=== PATIENT | male | born 1990 | race Caucasian/White ===

== ENCOUNTER 2018-01-18 22:39 | Inpatient (IN) ==
[2018-01-18] MEDS ORDERED: Morphine Inj 4 MG/ML Vial IV.PUSH ONE (23:16)
[2018-01-18] MEDS ORDERED: Clindamycin 900 mg/NS Premix 900 MG/50 ML PIGGYBACK IV.SIG STA (23:17)
[2018-01-18] MEDS ORDERED: Acetaminophen 325 MG Tablet PO ONE (23:24)
--- NOTE | 2018-01-18 23:24 | ED ---
HPI General Chief complaint: Skin/Abscess/Foreign Body Stated complaint: abscess on buttock Time Seen by Provider: 01/18/18 23:05 Source: patient Mode of arrival: ambulatory Limitations: no limitations History of Present Illness HPI narrative: Patient is a 27-year-old male who comes in complaining of his buttocks. He says that has been there for the past 2-1/2 weeks. He says it has been getting larger and more painful. He has felt feverish. He has been taking Tylenol and IV help with the fever and pain. He last took it an hour and a half ago. He says he went to an urgent care and they told him he might need to have it drained by a surgeon. He says he feels like it is going into his testicular area and he has pain when he has a bowel movement. Severity is moderate. Related Data Home Medications Medication Instructions Recorded Confirmed acetaminophen [Tylenol Extra 1,000 mg PO Q6H PRN 01/18/18 01/18/18 Strength] ibuprofen 400 mg PO QID PRN 01/18/18 01/19/18 sulfamethoxazole-trimethoprim 1 tab PO Q12H 01/18/18 01/18/18 [Bactrim DS] Allergies Allergy/AdvReac Type Severity Reaction Status Date / Time No Known Allergies Allergy Unverified 01/18/18 23:16 Review of Systems ROS: all other systems reviewed are negative Constitutional Reports chills and Reports fever(s) ENT Denies dizziness Cardiovascular Denies chest pain and Denies dyspnea Respiratory Denies dyspnea Gastrointestinal Reports abdominal pain, Denies nausea and Denies vomiting Musculoskeletal Denies myalgias and Denies arthralgias Integumentary/Breasts Reports lesions Neurologic Denies focal weakness and Denies numbness PMFSH Social History Social History Substance History: No History of Abuse Second Hand Smoke Exposure: Yes Smoking Status: Current every day smoker Tobacco Type: Cigarettes How Often Do You Have a Drink Containing Alcohol: 2 to 4 times a month Recent Travel in [facility] within the Last 8 Weeks: No Recent Out of Country Travel within the Last 8 Weeks: No Immunization History Tetanus Immunization: <5 Years Exam Narrative Exam Narrative: GENERAL: Awake and alert, no acute distress. SKIN: Large area of erythema and induration to the right buttocks, extending into the anus as well as the perineum. HEAD: Atraumatic. Normocephalic. EYES: Pupils equal and round. No scleral icterus. ENT: Mucous membranes pink and moist. NECK: Trachea midline. No JVD. CARDIOVASCULAR: Regular rate and rhythm. No murmur appreciated. RESPIRATORY: No accessory muscle use. Clear to auscultation. Breath sounds equal bilaterally. GASTROINTESTINAL: Abdomen soft, non-tender, nondistended. MUSCULOSKELETAL: No obvious deformities. No clubbing. No cyanosis. No edema. NEUROLOGICAL: Awake and alert. No obvious cranial nerve deficits. Motor grossly within normal limits. Normal speech. PSYCHIATRIC: Appropriate mood and affect; insight and judgment normal. Course Initial Documented Vital Signs Temperature 99.7 F H 01/18/18 22:50 Pulse Rate 92 H 01/18/18 22:50 Respiratory Rate 18 01/18/18 22:50 Blood Pressure 122/76 01/18/18 22:50 Pulse Oximetry 99 01/18/18 22:50 Last Documented Vital Signs Temperature 98.1 F 01/19/18 01:07 Pulse Rate 87 01/19/18 01:07 Respiratory Rate 16 01/19/18 01:07 Blood Pressure 154/68 H 01/19/18 01:07 Pulse Oximetry 99 01/19/18 01:07 Sign Out Sign Out Data: Patient Sign Out occurred on 01/19/18 at 00:27. Patient's care was discussed, and care was transferred from Perri Horton MD to Angelica Beckwith MD. Sign Out Comment: Follow up lab work, imaging, disposition the patient. Last updated by Perri Horton MD at 01/18/18 23:46 Post-Handoff Eval: Accepted in transfer of care from Dr. Horton for follow-up of pending labs CT and patient disposition. Medical Decision Making MDM Narrative Medical decision making narrative: 27-year-old male not diabetic accepted in transfer of care from Dr. Horton for area of cellulitis and concern for non- pointing abscess to the left buttock and perirectal area; no eschar no crepitus no subcutaneous emphysema no rapidly worsening symptoms concerning for necrotizing fasciitis or Brady's gangrene CT consistent with 4.7 x 4 x 2.7 perirectal abscess; this is discussed with patient who is willing to have ongoing IV antibiotics but does not want to proceed with I&D in the emergency department. Patient is aware that ultimately the intervention of choice is I&D well discussed patient with medicine service for admission and possible colorectal consult in a.m. for definitive intervention. Patient has received IV morphine without pain relief Toradol ordered. Call placed to [facility] service. @ 2AM discussed with and accepted by [facility] service for IV antibiotics and as needed colorectal consult. Medical Screen Exam Complete: Yes Emergency Medical Condition: Yes Differential Diagnosis Differential Diagnosis: Abscess cellulitis fistulous tract; no findings for Brady's gangrene, necrotizing fasciitis Medical Records Medical records reviewed: Yes I reviewed the patient's medical records. none Lab Data Lab results reviewed: Yes I reviewed the patient's lab results. Lab results narrative: lactic acid 0.7, not elevated Result diagrams: 01/18/18 23:40 01/18/18 23:40 Lab Results 01/18/18 01/18/18 01/18/18 Range/Units 23:40 23:40 23:40 CBC w Diff Auto diff final WBC 12.8 H (4.0-11.0) th/mm3 RBC 4.48 L (4.50-5.90) mil/mm3 Hgb 13.8 (13.0-17.0) gm/dL Hct 39.8 (39.0-51.0) % MCV 88.9 (80.0-100.0) fL MCH 30.7 (27.0-34.0) pg MCHC 34.6 (32.0-36.0) % RDW 12.0 (11.6-17.2) % Plt Count 247 (150-450) th/mm3 MPV 9.2 (7.0-11.0) fL Neut % (Auto) 72.2 H (16.0-70.0) % Lymph % (Auto) 17.6 (9.0-44.0) % [place] % (Auto) 6.5 (0.0-8.0) % Eos % (Auto) 2.5 (0.0-4.0) % Baso % (Auto) 1.2 (0.0-2.0) % Neut # (Auto) 9.3 H (1.8-7.7) th/mm3 Lymph # (Auto) 2.2 (1.0-4.8) th/mm3 [place] # (Auto) 0.8 (0.0-0.9) th/mm3 Eos # (Auto) 0.3 (0.0-0.4) th/mm3 Baso # (Auto) 0.2 (0.0-0.2) th/mm3 WBC Differential . Differential Comment . PT 10.7 (9.8-11.6) sec INR 1.1 Ratio APTT 33.3 H (24.3-30.1) sec Sodium 140 (136-145) meq/L Potassium 3.5 (3.5-5.1) meq/L Chloride 104 (98-107) meq/L Carbon Dioxide 26.8 (21.0-32.0) meq/L Anion Gap 9 (5-15) meq/L BUN 17 (7-18) mg/dL Creatinine 1.40 H (0.60-1.30) mg/dL Estimated GFR 60 L (>89) mL/min Random Glucose 103 (74-106) mg/dL Lactic Acid (0.4-2.0) mmol/L Calcium 8.6 (8.5-10.1) mg/dL Total Bilirubin 0.2 (0.2-1.0) mg/dL AST 16 (15-37) U/L ALT 16 (12-78) U/L Alkaline Phosphatase 96 (45-117) U/L Total Protein 7.8 (6.4-8.2) g/dL Albumin 3.8 (3.4-5.0) g/dL 01/18/18 Range/Units 23:40 CBC w Diff WBC (4.0-11.0) th/mm3 RBC (4.50-5.90) mil/mm3 Hgb (13.0-17.0) gm/dL Hct (39.0-51.0) % MCV (80.0-100.0) fL MCH (27.0-34.0) pg MCHC (32.0-36.0) % RDW (11.6-17.2) % Plt Count (150-450) th/mm3 MPV (7.0-11.0) fL Neut % (Auto) (16.0-70.0) % Lymph % (Auto) (9.0-44.0) % [place] % (Auto) (0.0-8.0) % Eos % (Auto) (0.0-4.0) % Baso % (Auto) (0.0-2.0) % Neut # (Auto) (1.8-7.7) th/mm3 Lymph # (Auto) (1.0-4.8) th/mm3 [place] # (Auto) (0.0-0.9) th/mm3 Eos # (Auto) (0.0-0.4) th/mm3 Baso # (Auto) (0.0-0.2) th/mm3 WBC Differential Differential Comment PT (9.8-11.6) sec INR Ratio APTT (24.3-30.1) sec Sodium (136-145) meq/L Potassium (3.5-5.1) meq/L Chloride (98-107) meq/L Carbon Dioxide (21.0-32.0) meq/L Anion Gap (5-15) meq/L BUN (7-18) mg/dL Creatinine (0.60-1.30) mg/dL Estimated GFR (>89) mL/min Random Glucose (74-106) mg/dL Lactic Acid 0.7 (0.4-2.0) mmol/L Calcium (8.5-10.1) mg/dL Total Bilirubin (0.2-1.0) mg/dL AST (15-37) U/L ALT (12-78) U/L Alkaline Phosphatase (45-117) U/L Total Protein (6.4-8.2) g/dL Albumin (3.4-5.0) g/dL Imaging Data Radiologist's impression: Pelvis CT 01/19/18 00:23 CONCLUSION: 1. 4.1 x 2.7 x 4.1 cm left perirectal abscess. Discharge Plan Discharge Disposition Patient Disposition: 30 Still Patient Discharge Condition Condition: Stable Discharge Details Diagnosis: Perirectal abscess, Cellulitis, SIRS (systemic inflammatory response syndrome) Physicians Team ED Provider: Angelica Beckwith Primary Care Provider: Primary Care Caryl Coppola Attending Provider: Kelsy Casey Status ED Status: Admitted Observation Patient
[2018-01-18 23:57] LABS: Baso # (Auto) 0.2 th/mm3 (0.0-0.2); Baso % (Auto) 1.2 % (0.0-2.0); Eos # (Auto) 0.3 th/mm3 (0.0-0.4); Eos % (Auto) 2.5 % (0.0-4.0); Hematocrit 39.8 % (39.0-51.0); Hemoglobin 13.8 gm/dL (13.0-17.0); Lymph # (Auto) 2.2 th/mm3 (1.0-4.8); Lymph % (Auto) 17.6 % (9.0-44.0); Mean Corpuscular HGB Conc 34.6 % (32.0-36.0); Mean Corpuscular Hemoglobin 30.7 pg (27.0-34.0); Mean Corpuscular Volume 88.9 fL (80.0-100.0); Mean Platelet Volume 9.2 fL (7.0-11.0); Mono # (Auto) 0.8 th/mm3 (0.0-0.9); Mono % (Auto) 6.5 % (0.0-8.0); Neut # (Auto) 9.3 th/mm3 (1.8-7.7); Neut % (Auto) 72.2 % (16.0-70.0); Platelet Count 247 th/mm3 (150-450); Red Blood Count 4.48 mil/mm3 (4.50-5.90); White Blood Count 12.8 th/mm3 (4.0-11.0)
[2018-01-18] MEDS: Sod Chloride 0.9% Inj 1,000 ML IV.SIG SCH (23:57)
[2018-01-19 00:02] LABS: Chloride 104 meq/L (98-107); Potassium 3.5 meq/L (3.5-5.1); Sodium 140 meq/L (136-145)
[2018-01-19 00:05] LABS: Calcium 8.6 mg/dL (8.5-10.1)
[2018-01-19 00:06] LABS: Albumin 3.8 g/dL (3.4-5.0); Anion Gap 9 meq/L (5-15); Carbon Dioxide 26.8 meq/L (21.0-32.0); Glucose,Random 103 mg/dL (74-106)
[2018-01-19 00:08] LABS: Activated Partial Thrombo Time 33.3 sec (24.3-30.1); Blood Urea Nitrogen 17 mg/dL (7-18); INR 1.1 Ratio; Prothrombin Time 10.7 sec (9.8-11.6)
[2018-01-19 00:09] LABS: Alanine Aminotransferase 16 U/L (12-78); Aspartate Aminotransferase 16 U/L (15-37); Glomerular Filtration Rate 60 mL/min (>89)
[2018-01-19 00:11] LABS: Total Protein 7.8 g/dL (6.4-8.2)
[2018-01-19 00:12] LABS: Alkaline Phosphatase 96 U/L (45-117)
--- NOTE | 2018-01-19 00:51 | CT ---
EXAM DATE: 01/19/2018 12:23 AM EDT AGE/SEX: 27 years / Male INDICATIONS: Evaluate for abscess. CLINICAL DATA: This is the patient's initial encounter. Patient reports that signs and symptoms have been present for 4 - 6 days and indicates a pain score of 10/10. MEDICAL/SURGICAL HISTORY: None. None. RADIATION DOSE: 14.71 CTDI (mGy) COMPARISON: No prior exams available for comparison. TECHNIQUE: Multiple contiguous helical axial images were obtained through pelvis following bolus inf usion of 75 ml Omnipaque 350 (iohexol) nonionic water-soluble contrast as a single exam dose. Imag es were obtained using multiple row detector helical technique. . Using automated exposure control an d adjustment of the mA and/or kV according to patient size, radiation dose was kept as low as reasona johnathon achievable to obtain optimal diagnostic quality images. DICOM format image data is available dot ctronically for review and comparison. FINDINGS: AORTA: Visualized portions are nonaneurysmal. BOWEL/MESENTERY: Appendix is visualized and normal in appearance. Less portions of bowel are unremar kable without evidence for obstruction. There is no significant free fluid or drainable fluid collect ion in the pelvis. There is a 4.1 x 2.7 x 4.1 cm peripherally enhancing fluid collection in the left perirectal region with surrounding inflammatory change consistent with perirectal abscess. ABDOMINAL WALL: Intact. RETROPERITONEUM: No evidence of adenopathy in the retrocrural, para-aortic, or deep pelvic regions. BLADDER: Contours are smooth. REPRODUCTIVE: No abnormal masses or calcifications seen. BONY STRUCTURES: Unremarkable. CONCLUSION: 1. 4.1 x 2.7 x 4.1 cm left perirectal abscess. Electronically signed by: Krystian Medeiors MD 01/19/2018 12:49 AM EDT
[2018-01-19] MEDS ORDERED: Bisacodyl 10 MG Supp RECTAL PRN (02:22)
[2018-01-19] MEDS ORDERED: Acetaminophen 325 MG Tablet PO PRN ×2 (02:22→19:41)
[2018-01-19] MEDS: Sod Chloride 0.9% Inj 1,000 ML IV.CONT SCH ×3 (02:54→19:24)
[2018-01-19] MEDS: HYDROmorphone PF Inj 2 MG/ML Vial IV.PUSH PRN ×3 (02:55→17:17)
[2018-01-19] MEDS: Ciprofloxacin 400 MG/200 ML 400 MG/200 ML PIGGYBACK IV.SIG SCH ×2 (03:03→17:19)
[2018-01-19] MEDS: Sod Chloride 0.9% Inj 1,000 ML IV.SIG SCH ×2 (09:33→17:19)
--- NOTE | 2018-01-19 11:24 | P.HPIM ---
History of Present Illness Primary Care Physician: No Primary Care Physician History of Present Illness: Mr Glynn is a 27-year-old male. 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 He is a previous small rectal abscess which resolved on its own. Recently he has been having rectal pain. He was waiting to see if this resolved on its own. It did not. Fevers have started. Fevers and tachycardia are present in addition to leukocytosis and evidence of perirectal abscess on CT scan. Based on this the patient has a perirectal abscess with sepsis. Surgical intervention is anticipated. Surgery has been consulted. Antibiotics have also been initiated. Pain treatments are in place but pain medications will be adjusted due to lack of pain control. - Diagnosis (1) Sepsis (2) Perirectal abscess (3) Cellulitis Review of Systems Constitutional: Fever, no chills no night sweats, no fatigue, no weakness Eyes: No eye pain, no blurry vision, no loss of vision ENT: No sore throat, no ear pain, no rhinorrhea Cardiovascular: No chest pain, no tachycardia, no palpitations, no shortness of breath, no syncope Respiratory: No wheezing, no cough, no shortness of breath Gastrointestinal: No abdominal pain, no black tarry stools, no bright red blood per rectum, no vomiting, no diarrhea, rectal pain Musculoskeletal: No joint pain, no muscle cramps, no stiffness Integumentary: No rash, no ulcers, no drainage Neurologic: No sensory loss, no loss of motor function, no dizziness Psychiatric: No behavioral changes, no hallucinations, no suicidal ideations PMFSH - History History Provided By: Patient - Family History Family History: Family History (Last Updated 01/19/18 @ 11:21 by Josep Dawn MD) Other Osteoarthritis - Tobacco History Second Hand Smoke Exposure: Yes Tobacco Use In Past 30 Days: Yes Smoking Status: Current every day smoker Tobacco Type: Cigarettes - Alcohol History How Often Do You Have a Drink Containing Alcohol: Never - Substance Use History Substance History: No History of Abuse - Travel History Recent Travel in the [place] Within the Last 8 Weeks: No Recent Travel Out of the Country Within the Last 8 Weeks: No - Immunization History Tetanus Immunization: <5 Years Medications and Allergies Active Medications: Active Medications Acetaminophen (Tylenol) 650 mg PO Q4H PRN PRN Reason: Temp > 100.4 Last Admin: 01/19/18 09:27 Dose: 650 mg Bisacodyl (Dulcolax Supp) 10 mg RECTAL DAILY PRN PRN Reason: SEVERE CONSITIPATION Hydromorphone HCl (Dilaudid Pf Inj) 1 mg IV.PUSH Q4H PRN PRN Reason: pain > 4 Last Admin: 01/19/18 09:19 Dose: 1 mg Sodium Chloride (Ns Inj) 1,000 mls @ 0 mls/hr IV.SIG BOLUS [facility] Last Admin: 01/19/18 09:33 Dose: 150 mls/hr Ciprofloxacin/Dextrose (Cipro 400 Mg/200 Ml Inj) 400 mg in 200 mls @ 200 mls/ hr IV.SIG Q12H [facility] Last Infusion: 01/19/18 04:03 Dose: Infused Metronidazole/Sodium Chloride (Flagyl 500 Mg Inj) 100 mls @ 100 mls/hr IV.SIG Q8H [facility] Last Infusion: 01/19/18 07:00 Dose: Infused Sodium Chloride (Ns Inj) 1,000 mls @ 150 mls/hr IV.CONT .Q6H40M [facility] Last Admin: 01/19/18 09:34 Dose: 100 mls/hr Ondansetron HCl (Zofran Inj) 4 mg IV.PUSH Q6H PRN PRN Reason: NAUSEA OR VOMITING Last Admin: 01/19/18 03:03 Dose: 4 mg Sennosides (Senokot) 17.2 mg PO Q12H PRN PRN Reason: Moderate Constipation Allergies Allergy/AdvReac Type Severity Reaction Status Date / Time No Known Allergies Allergy Unverified 01/18/18 23:16 Home Medications Medication Instructions Recorded Confirmed Type acetaminophen [Tylenol Extra 1,000 mg PO Q6H PRN 01/18/18 01/18/18 History Strength] ibuprofen 400 mg PO QID PRN 01/18/18 01/19/18 History sulfamethoxazole-trimethoprim 1 tab PO Q12H 01/18/18 01/18/18 History [Bactrim DS] Exam Vital signs: Vital Signs 01/18/18 22:50 01/19/18 00:05 01/19/18 01:07 Temperature 99.7 F H 98.1 F Pulse Rate 92 H 87 Respiratory Rate 18 18 16 Blood Pressure 122/76 154/68 H Pulse Oximetry 99 99 01/19/18 03:09 01/19/18 04:43 01/19/18 08:00 Temperature 97.2 F L 101.1 F H Pulse Rate 74 84 97 H Respiratory Rate 16 18 Blood Pressure 138/72 116/70 142/87 H Pulse Oximetry 99 98 Intake & Output 01/18/18 01/19/18 01/19/18 18:59 06:59 18:59 Intake Total 1250 / 1250 350 / 350 Balance 1250 / 1250 350 / 350 Weight 77 kg Intake: IV 1250 / 1250 350 / 350 NS Inj 1,000 ML @ 150 mls/hr IV 250 / 250 .CONT .Q6H40M [facility] Rx#: [id number] Cipro 400 MG/200 ML Inj 400 mg 200 / 200 In 200 ml @ 200 mls/hr IV.SIG Q12H [facility] Rx#:[id number] Cleocin 900 mg/NS Premix 900 mg 50 / 50 In 50 ml @ 100 mls/hr IV.SIG [facility] Rx#:[id number] NS Inj 1,000 ML @ Wide Open IV. 1000 / 1000 SIG BOLUS [facility] Rx#:[id number] Flagyl 500 MG Inj 100 ML @ 100 100 / 100 mls/hr IV.SIG Q8H [facility] Rx#: [id number] Other: # Voids 1 Narrative: GENERAL: NAD, A&Ox3 HEAD: Normocephalic. NECK: Supple, trachea midline. No lymphadenopathy. EYES: No scleral icterus. No injection or drainage. CARDIOVASCULAR: Regular rate and rhythm without murmurs, gallops, or rubs. RESPIRATORY: Breath sounds equal bilaterally. No accessory muscle use. GASTROINTESTINAL: Abdomen soft, non-tender, nondistended. Significant rectal pain with any movement. MUSCULOSKELETAL: No cyanosis, or edema. SKIN: Warm and dry. NEURO: No focal neurological deficits. Results - Labs CBC & Chem 7: 01/18/18 23:40 01/18/18 23:40 Labs: Short CBC 01/18/18 Range/Units 23:40 WBC 12.8 H (4.0-11.0) th/mm3 Hgb 13.8 (13.0-17.0) gm/dL Hct 39.8 (39.0-51.0) % Plt Count 247 (150-450) th/mm3 BMP 01/18/18 23:40 Sodium 140 Potassium 3.5 Chloride 104 Carbon Dioxide 26.8 BUN 17 Creatinine 1.40 H Calcium 8.6 Liver Function 01/18/18 Range/Units 23:40 Total Bilirubin 0.2 (0.2-1.0) mg/dL AST 16 (15-37) U/L ALT 16 (12-78) U/L Alkaline Phosphatase 96 (45-117) U/L Albumin 3.8 (3.4-5.0) g/dL - Imaging Impressions Pelvis CT 01/19/18 00:23 CONCLUSION: 1. 4.1 x 2.7 x 4.1 cm left perirectal abscess. Caprini VTE Risk Assessment Caprini VTE Risk Assessment: No/Low Risk (score <= 1) Caprini Risk Assessment Model: Point Value = 1 Point Value = 2 Point Value = 3 Point Value = 5 Age 41-60 Minor surgery BMI > 25 kg/m2 Swollen legs Varicose veins or History of unexplained or recurrent spontaneous Oral contraceptives or hormone replacement Sepsis (< 1 month) Serious lung disease, including pneumonia (< 1 month) Abnormal pulmonary function Acute myocardial infarction Congestive heart failure (< 1 month) History of inflammatory bowel disease Medical patient at bed rest Age 61-74 Arthroscopic surgery Major open surgery (> 45 min) Laparoscopic surgery (> 45 min) Malignancy Confined to bed (> 72 hours) Immobilizing plaster cast Central venous access Age >= 75 History of VTE Family history of VTE Factor V Leiden Prothrombin [id number] Lupus anticoagulant Anticardiolipin antibodies Elevated serum homocysteine Heparin-induced thrombocytopenia Other congenital or acquired thrombophilia Stroke (< 1 month) Elective arthroplasty Hip, pelvis, or leg fracture Acute spinal cord injury (< 1 month) Prophylaxis Regimen: Total Risk Factor Score Risk Level Prophylaxis Regimen 0-1 Low Early ambulation 2 Moderate Order ONE of the following: *Sequential Compression Device (SCD) *Heparin 5000 units SQ BID 3-4 Higher Order ONE of the following medications: *Heparin 5000 units SQ TID *Enoxaparin/Lovenox 40 mg SQ daily (WT < 150 kg, CrCl > 30 mL/min) *Enoxaparin/Lovenox 30 mg SQ daily (WT < 150 kg, CrCl > 10-29 mL/min) *Enoxaparin/Lovenox 30 mg SQ BID (WT < 150 kg, CrCl > 30 mL/min) AND/OR *Sequential Compression Device (SCD) 5 or more Highest Order ONE of the following medications: *Heparin 5000 units SQ TID (Preferred with Epidurals) *Enoxaparin/Lovenox 40 mg SQ daily (WT < 150 kg, CrCl > 30 mL/min) *Enoxaparin/Lovenox 30 mg SQ daily (WT < 150 kg, CrCl > 10-29 mL/min) *Enoxaparin/Lovenox 30 mg SQ BID (WT < 150 kg, CrCl > 30 mL/min) AND *Sequential Compression Device (SCD) Assessment and Plan - Assessment (1) Sepsis Code(s): A41.9 - Sepsis, unspecified organism Status: Acute (2) Perirectal abscess Code(s): K61.1 - Rectal abscess Status: Acute (3) Cellulitis Code(s): L03.90 - Cellulitis, unspecified Status: Acute - Plan 27-year-old male admitted secondary to perirectal abscess and sepsis Sepsis IV hydration Monitor vital signs closely Follow fever pattern Treat infection as below Perirectal abscess Continue clindamycin, Flagyl, and ciprofloxacin Percocet for pain with as needed Dilaudid for breakthrough pain Surgeon consulted Anticipate possible need for surgical intervention DVT prophylaxis SCDs (3) Cellulitis Qualifiers: Site of cellulitis: buttock Qualified Code(s): L03.317 - Cellulitis of buttock
[2018-01-19] MEDS: oxyCODONE/Acetaminophen 10/325 Tablet PO PRN ×2 (13:38→20:37)
[2018-01-19] MEDS ORDERED: Chlorhexidine Gluconate 2% 1 Pack (2 Cloths) TOPICAL ONE (18:50)
[2018-01-19] MEDS ORDERED: Metoprolol Tartrate 25 MG Tablet PO ONE (18:50)
[2018-01-19] MEDS ORDERED: Phenylephrine/NS 1000 MCG/10ML Syringe IV.PUSH ONE (19:00)
[2018-01-19] MEDS ORDERED: Lidocaine PF 1% Inj 5 ML Syringe OTHER ONE (19:00)
[2018-01-19] MEDS ORDERED: Succinylcholine Inj 100 MG/5 ML Syringe IV.PUSH ONE (19:00)
[2018-01-19] MEDS ORDERED: Sodium Chlor 0.9% Inj 500 ML IV.SIG SCH (19:00)
[2018-01-19] MEDS ORDERED: Potassium Chlor 20 mEq Premix 20 MEQ/100 ML PIGGYBACK IV.SIG PRN (19:41)
[2018-01-19] MEDS ORDERED: Potassium Chlor 40 mEq Premix 40 MEQ/100 ML PIGGYBACK IV.SIG PRN (19:41)
[2018-01-19] MEDS ORDERED: Ketorolac Inj 30 MG/ML (IVP) Vial IV.PUSH PRN (19:41)
[2018-01-19] MEDS ORDERED: fentaNYL Citrate Inj 100 MCG/2 ML Ampul ONE (19:46)
[2018-01-19] MEDS ORDERED: KCL 20 mEq/D5W/NaCl 0.9% Inj 1,000 ML ONE (20:01)
[2018-01-20] MEDS: Ciprofloxacin 400 MG/200 ML 400 MG/200 ML PIGGYBACK IV.SIG SCH (03:37)
[2018-01-20] MEDS: KCL 20 mEq/D5W/NaCl 0.9% Inj 1,000 ML IV.CONT SCH (03:40)
[2018-01-20 06:57] LABS: Baso % (Auto) 0.4 % (0.0-2.0); Eos # (Auto) 0.2 th/mm3 (0.0-0.4); Eos % (Auto) 2.1 % (0.0-4.0); Hematocrit 33.4 % (39.0-51.0); Hemoglobin 11.4 gm/dL (13.0-17.0); Lymph # (Auto) 1.7 th/mm3 (1.0-4.8); Lymph % (Auto) 22.2 % (9.0-44.0); Mean Corpuscular HGB Conc 34.1 % (32.0-36.0); Mean Corpuscular Hemoglobin 31.1 pg (27.0-34.0); Mean Corpuscular Volume 91.2 fL (80.0-100.0); Mean Platelet Volume 8.7 fL (7.0-11.0); Mono # (Auto) 0.9 th/mm3 (0.0-0.9); Mono % (Auto) 11.6 % (0.0-8.0); Neut # (Auto) 4.8 th/mm3 (1.8-7.7); Neut % (Auto) 63.7 % (16.0-70.0); Platelet Count 176 th/mm3 (150-450); Red Blood Count 3.67 mil/mm3 (4.50-5.90); Red Cell Distribution Width 12.4 % (11.6-17.2); White Blood Count 7.5 th/mm3 (4.0-11.0)
[2018-01-20 07:12] LABS: Calcium 7.9 mg/dL (8.5-10.1); Carbon Dioxide 28.5 meq/L (21.0-32.0)
[2018-01-20] MEDS: Sod Chloride 0.9% Inj 1,000 ML IV.CONT SCH ×2 (08:37→08:41)
[2018-01-20] MEDS ORDERED: Pantoprazole Inj 40 MG Vial IV.PUSH SCH (09:00)
--- NOTE | 2018-01-20 10:36 | P.PN ---
Subjective Interval history: Follow-up visit for abscess, sepsis and cellulitis. Patient is status post I&D of rectal abscess 01/[address] Wiley. Reports that he continues to have swelling as well as a lot of pain. Patient states that current medications are not alleviating his pain and tenderness. He denies any fevers, chills, nausea, vomiting, diarrhea, cough, shortness of breath or chest pain. Return back to see patient around 1:40pm, has cleared patient to be DC home. Discussed with patient DC, had significant pain earlier this a.m. relieved with IV Morphine. Unsure if his pain will be controlled at home with just oral medications. Discussed trying to just use oral pain medications and pain is well controlled DC home today with oral pain medications and oral antibiotics. Discussed with RN. Scripts printed and signed. [employer]-Force checked. Return back to see patient again around 5:10 PM. Nurse reports a temperature earlier of 100, checked at bedside oral temperature 102. Physical Exam Vital signs: Vital Signs 01/19/18 13:06 01/19/18 17:03 01/19/18 19:38 Temperature 100.2 F H 101.7 F H 102.8 F H Pulse Rate 94 H 89 110 H Respiratory Rate 16 18 22 Blood Pressure 130/72 130/82 113/63 Pulse Oximetry 96 98 01/19/18 19:45 01/19/18 20:00 01/19/18 20:08 Temperature 100.5 F H Pulse Rate 99 H 81 97 H Respiratory Rate 16 18 Blood Pressure 110/56 L Pulse Oximetry 99 99 97 01/20/18 00:00 01/20/18 08:00 Temperature 98.7 F 98.2 F Pulse Rate 77 73 Respiratory Rate 18 15 Blood Pressure 114/56 L Pulse Oximetry 98 100 Intake & Output 01/19/18 01/20/18 01/20/18 18:59 06:59 18:59 Intake Total 1450 / 1450 1900 / 1900 2400 / 2400 Output Total 1310 / 1310 Balance 1450 / 1450 590 / 590 2400 / 2400 Weight 83 kg Intake: IV 1450 / 1450 1400 / 1400 2400 / 2400 NS Inj 1,000 ML @ 150 mls/hr IV 250 / 250 1000 / 1000 1000 / 1000 .CONT .Q6H40M [facility] Rx#: [id number] Cipro 400 MG/200 ML Inj 400 mg 200 / 200 200 / 200 In 200 ml @ 200 mls/hr IV.SIG Q12H [facility] Rx#:[id number] NS Inj 1,000 ML @ Wide Open IV. 1000 / 1000 1000 / 1000 SIG BOLUS [facility] Rx#:[id number] Ancef Inj 1,000 MG In NS Inj 100 / 100 100 / 100 100 ML @ 200 mls/hr IV.SIG Q6H [facility] Rx#:[id number] Flagyl 500 MG Inj 100 ML @ 200 200 / 200 100 / 100 100 / 100 mls/hr IV.SIG Q8H [facility] Rx#: [id number] Anesthesia Amount 500 / 500 Output: Urine 1300 / 1300 Estimated Blood Loss Other: Date of Last Bowel Movement 01/18/18 01/18/18 Narrative: GENERAL: NAD, A&Ox3 HEAD: Normocephalic. NECK: Supple, trachea midline. EYES: No scleral icterus. No injection or drainage. CARDIOVASCULAR: Regular rate and rhythm without murmurs, gallops, or rubs. RESPIRATORY: Breath sounds equal bilaterally. No accessory muscle use. GASTROINTESTINAL: Abdomen soft, non-tender, nondistended. Left buttock/rectal wound noted with packed dressing. ABD pad and gauze pad saturated with serosanguineous drainage. Surrounding erythema and tenderness. MUSCULOSKELETAL: No cyanosis, or edema. SKIN: Warm and dry. NEURO: No focal neurological deficits. Results - Labs CBC & Chem 7: 01/20/18 06:13 01/20/18 06:13 Laboratory Results - last 24 hr 01/20/18 01/20/18 06:13 06:13 WBC 7.5 RBC 3.67 L Hgb 11.4 L D Hct 33.4 L MCV 91.2 MCH 31.1 MCHC 34.1 RDW 12.4 Plt Count 176 MPV 8.7 Neut % (Auto) 63.7 Lymph % (Auto) 22.2 [place] % (Auto) 11.6 H Eos % (Auto) 2.1 Baso % (Auto) 0.4 Neut # (Auto) 4.8 Lymph # (Auto) 1.7 [place] # (Auto) 0.9 Eos # (Auto) 0.2 Baso # (Auto) 0.0 WBC Differential . Differential Comment Auto diff final Sodium 135 L Potassium 4.0 Chloride 101 Carbon Dioxide 28.5 Anion Gap 6 BUN 9 Creatinine 1.12 Estimated GFR 78 L Random Glucose 107 H Calcium 7.9 L Microbiology 01/18/18 23:40 Blood - Peripheral Aerobic Blood Culture - Preliminary No growth in 1 day 01/18/18 23:40 Blood - Peripheral Anaerobic Blood Culture - Preliminary No growth in 1 day Assessment and Plan - Assessment (1) Sepsis Code(s): A41.9 - Sepsis, unspecified organism Status: Acute (2) Perirectal abscess Code(s): K61.1 - Rectal abscess Status: Acute (3) Cellulitis Code(s): L03.90 - Cellulitis, unspecified Status: Acute - Plan 27-year-old male admitted secondary to perirectal abscess and sepsis Sepsis / perirectal abscess -Rectal surgeon consulted, greatly appreciate assistance. -Patient is status post I&D of abscess by 01/19 -IV antibiotics include Cipro and Flagyl. Scheduled Toradol every 6 hours -Pain control with p.o. Percocet, add IV morphine for breakthrough pain -Continue to follow blood cultures -White count back to normal -T-max today in the afternoon of 102, hold DC. Continue IV antibiotics. 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 (3) Cellulitis Qualifiers: Site of cellulitis: buttock Qualified Code(s): L03.317 - Cellulitis of buttock
[2018-01-20] MEDS: Morphine Sulfate Inj 2 MG/ML Vial IV.PUSH PRN (11:46)
--- NOTE | 2018-01-20 12:17 | P.PNCS ---
Subjective Colorectal Surgery Post Op Day #: 1 Interval history: afebrile, VSS UO good - voiding [place]on PO Objective Result Diagrams: 01/20/18 06:13 01/20/18 06:13 Objective Remarks: PE alert Abd - soft Rectal - clean wound, less cellulitis Assessment and Plan - Plan Imp: stable post-op OOB wound care, packing OK to DC home when family can clean wound RTO 1 - 2 weeks
--- NOTE | 2018-01-20 12:36 | MP ---
cc: Gerard Wiley MD DATE OF OPERATION: 01/19/2018 PREOPERATIVE DIAGNOSIS: Ischiorectal abscess PROCEDURES: Exam under anesthesia with proctoscopy and incision and drainage of large ischiorectal abscess. POSTOPERATIVE DIAGNOSIS: Ischiorectal abscess SURGEON: Gerard Wiley MD DESCRIPTION OF PROCEDURE: The patient was placed in the supine position. After adequate general anesthesia, he was turned and placed in the prone jackknife position. His buttocks taped apart, prepped with Betadine solution and draped in the usual sterile fashion. Initially rectal exam was performed and the rectal vault appeared normal. The mucosa appeared unremarkable. There were no signs of any internal openings or purulent fluid. Hemorrhoid tissues appeared pretty benign. There was significant induration and cellulitis of the left ischiorectal space extending all the way up anteriorly along the perineal body and towards the base of the scrotum. A radial incision was made anteriorly, entering a large cavity full of foul smelling purulent fluid. The cavity was fully explored and opened along the length of its extent. It did appear to be outside of the anal verge. Bimanual palpation failed to reveal any internal opening or connection to the anal canal. Cavity was irrigated copiously. Some necrotic material debrided from the base of the cavity. It did appear to extend along the perineal body and this plane was opened digitally although no additional purulent fluid was obtained. Cavity was irrigated copiously with normal saline. Adequate hemostasis achieved. Cavity was packed loosely with a large Kerlix dressing a big fluff dressing placed externally. The patient tolerated the procedure quite well and was brought to the recovery room in stable condition. Sponge and needle counts were correct at the end of the procedure. Gerard Wiley MD [facility]/ld , 12:23 PM , 12:28 PM
--- NOTE | 2018-01-20 12:40 | MB ---
cc: Gerard Wiley MD DATE: 01/19/2018 REASON FOR CONSULTATION: Perirectal infection, abscess. HISTORY OF PRESENT ILLNESS: Mr. Glynn is a 27-year-old male who came to the emergency room today complaining of about 2 weeks of gradually worsening pain around the rectum. Says he was treating it at home, hoping it would get better, but it has gotten more swollen and tender. He has felt like a low grade fever, but has had no chills or rigors. The patient has been taking Tylenol with some relief. The patient continued to have good bowel movements without bleeding. Denies any discharge. No diarrhea or melena. The patient was seen in the emergency room and found to have a rather large cellulitic area around the rectum, consistent with an abscess and was admitted for more definitive surgical drainage. Please see the admitting history and physical and consultations for complete past medical and surgical history. PHYSICAL EXAMINATION: A very pleasant, muscular male in some discomfort. Abdomen was very soft and flat, muscular, not really distended. Normal bowel sounds. No rebound, guarding, or masses. Anal inspection reveals fairly significant cellulitis and induration along the left ischiorectal space. Very tender to the touch, not really fluctuant. Benign hemorrhoids. No obvious fissures or fistula. Very little hemorrhoidal swelling. LABORATORY DATA: Laboratory studies were reviewed. IMPRESSION: Significant cellulitis and inflammation of the ischiorectal space. PLAN: Discussed at length with the patient. The patient was recommended to have exam under anesthesia with proctoscopy and drainage of the abscess, possible fistulotomy if indeed an internal opening was identified. Risks, benefits, and alternatives were discussed including the possibility of a postop fistula, were all reviewed at length with the patient and he accepts the proposed treatment. The patient will be kept n.p.o. and taken down to the operating room as soon as the OR is available. Gerard Wiley MD [facility]/ , 12:20 PM , 12:26 PM
[2018-01-21 07:51] LABS: Baso % (Auto) 0.8 % (0.0-2.0); Eos # (Auto) 0.2 th/mm3 (0.0-0.4); Eos % (Auto) 3.7 % (0.0-4.0); Hemoglobin 12.9 gm/dL (13.0-17.0); Lymph # (Auto) 1.8 th/mm3 (1.0-4.8); Lymph % (Auto) 31.5 % (9.0-44.0); Mean Corpuscular Hemoglobin 30.9 pg (27.0-34.0); Mean Corpuscular Volume 90.8 fL (80.0-100.0); Mean Platelet Volume 8.4 fL (7.0-11.0); Mono # (Auto) 0.8 th/mm3 (0.0-0.9); Mono % (Auto) 13.3 % (0.0-8.0); Neut # (Auto) 2.9 th/mm3 (1.8-7.7); Neut % (Auto) 50.7 % (16.0-70.0); Platelet Count 215 th/mm3 (150-450); Red Blood Count 4.18 mil/mm3 (4.50-5.90); Red Cell Distribution Width 12.6 % (11.6-17.2); White Blood Count 5.8 th/mm3 (4.0-11.0)
[2018-01-21] MEDS ORDERED: Ciprofloxacin 400 MG/200 ML 400 MG/200 ML PIGGYBACK IV.SIG SCH (08:00)
[2018-01-21 08:09] LABS: Calcium 8.3 mg/dL (8.5-10.1); Carbon Dioxide 28.1 meq/L (21.0-32.0)
--- NOTE | 2018-01-21 10:51 | P.PN ---
Subjective Interval history: Follow-up visit for colorectal abscess. Spoke with nurse reports temperature max on 8 PM was 102.5. Patient reports that Dr. Wiley stopped by this morning and changed dressing himself. Voices frustration over dressing not being changed yesterday along with delay in medications. Denies any nausea, vomiting , diarrhea, cough or shortness of breath. Patient reports some constipation, voiding without dysuria. He also reports that wound pain is much improved. Nurse reports patient pulled out IV overnight, somewhat frustrated and states that he has 3 children at home waiting for him. Physical Exam Vital signs: Vital Signs 01/20/18 12:00 01/20/18 16:00 01/20/18 19:41 Temperature 98.2 F 100.2 F H 102.5 F H Pulse Rate 61 96 H 104 H Respiratory Rate 16 17 18 Blood Pressure 105/53 L 126/90 129/74 Pulse Oximetry 91 L 90 L 91 L 01/21/18 00:00 01/21/18 04:00 01/21/18 08:00 Temperature 98.4 F 98.3 F 98.3 F Pulse Rate 85 83 70 Respiratory Rate 18 17 17 Blood Pressure 111/62 120/69 124/70 Pulse Oximetry 94 L 97 98 Intake & Output 01/20/18 01/21/18 01/21/18 18:59 06:59 18:59 Intake Total 4075 / 4075 1999 Output Total 600 / 600 Balance 3475 / 3475 1999 Weight 79.3 kg Intake: IV 3600 / 3600 NS Inj 1,000 ML @ 150 mls/hr IV 1999 .CONT .Q6H40M [facility] Rx#: [id number] Cipro 400 MG/200 ML Inj 400 mg 200 / 200 In 200 ml @ 200 mls/hr IV.SIG Q12H [facility] Rx#:[id number] NS Inj 1,000 ML @ Wide Open IV. 1000 / 1000 SIG BOLUS [facility] Rx#:[id number] Ancef Inj 1,000 MG In NS Inj 200 / 200 100 ML @ 200 mls/hr IV.SIG Q6H [facility] Rx#:[id number] Flagyl 500 MG Inj 100 ML @ 200 200 / 200 mls/hr IV.SIG Q8H [facility] Rx#: [id number] Oral 475 / 475 1999 Output: Urine 600 / 600 Other: # Voids 10 # Bowel Movements 0 Narrative: GENERAL: NAD, A&Ox3 HEAD: Normocephalic. NECK: Supple, trachea midline. EYES: No scleral icterus. No injection or drainage. CARDIOVASCULAR: Regular rate and rhythm without murmurs, gallops, or rubs. RESPIRATORY: Breath sounds equal bilaterally. No accessory muscle use. GASTROINTESTINAL: Abdomen soft, non-tender, nondistended. Left buttock/rectal dressing dry and intact. MUSCULOSKELETAL: No cyanosis, or edema. SKIN: Warm and dry. NEURO: No focal neurological deficits. Results - Labs CBC & Chem 7: 01/21/18 06:10 01/21/18 06:10 Laboratory Results - last 24 hr 01/21/18 01/21/18 06:10 06:10 WBC 5.8 RBC 4.18 L Hgb 12.9 L Hct 38.0 L MCV 90.8 MCH 30.9 MCHC 34.0 RDW 12.6 Plt Count 215 MPV 8.4 Neut % (Auto) 50.7 Lymph % (Auto) 31.5 [place] % (Auto) 13.3 H Eos % (Auto) 3.7 Baso % (Auto) 0.8 Neut # (Auto) 2.9 Lymph # (Auto) 1.8 [place] # (Auto) 0.8 Eos # (Auto) 0.2 Baso # (Auto) 0.0 WBC Differential . Differential Comment Auto diff final Sodium 140 Potassium 4.0 Chloride 106 Carbon Dioxide 28.1 Anion Gap 6 BUN 8 Creatinine 1.10 Estimated GFR 80 L Random Glucose 92 Calcium 8.3 L Microbiology 01/18/18 23:50 Blood - Peripheral Aerobic Blood Culture - Preliminary No growth in 1 day 01/18/18 23:50 Blood - Peripheral Anaerobic Blood Culture - Preliminary No growth in 1 day 01/18/18 23:40 Blood - Peripheral Aerobic Blood Culture - Preliminary No growth in 2 days 01/18/18 23:40 Blood - Peripheral Anaerobic Blood Culture - Preliminary No growth in 2 days Assessment and Plan - Assessment (1) Sepsis Code(s): A41.9 - Sepsis, unspecified organism Status: Acute (2) Perirectal abscess Code(s): K61.1 - Rectal abscess Status: Acute (3) Cellulitis Code(s): L03.90 - Cellulitis, unspecified Status: Acute - Plan 27-year-old male admitted secondary to perirectal abscess and sepsis Sepsis 05/22 perirectal abscess -Rectal surgeon consulted, greatly appreciate assistance. -Patient is status post I&D of abscess by 01/19 -IV antibiotics include Cipro and Flagyl. Scheduled Toradol every 6 hours -Pain control with p.o. Percocet, add IV morphine for breakthrough pain -Continue to follow blood cultures -White count back to normal -T-max overnight 102.5, continue IV antibiotics. DVT prophylaxis SCDs Discussed Condition With: Patient and RN. Discharge Planning: Continue antibiotics, discharge once afebrile for 24 hours. (3) Cellulitis Qualifiers: Site of cellulitis: buttock Qualified Code(s): L03.317 - Cellulitis of buttock
[2018-01-21] MEDS: Senna/Docusate Sodium 8.6/50 MG Tablet PO SCH ×2 (11:21→20:27)
[2018-01-21] MEDS: Morphine Sulfate Inj 2 MG/ML Vial IV.PUSH PRN (17:02)
[2018-01-21] MEDS: Sod Chloride 0.9% Inj 1,000 ML IV.CONT SCH (19:33)
[2018-01-21] MEDS: KCL 20 mEq/D5W/NaCl 0.9% Inj 1,000 ML IV.CONT SCH (19:34)
[2018-01-21] MEDS: metroNIDAZOLE 500 MG Tablet PO SCH ×2 (20:24→21:51)
[2018-01-21] MEDS: Ciprofloxacin 500 MG Tablet PO SCH (20:24)
[2018-01-21 21:11] VITALS: O2SAT 97
--- NOTE | 2018-01-21 22:02 | P.PNCS ---
Subjective Colorectal Surgery Post Op Day #: 2 Interval history: afebrile, VSS UO good feels better Objective Result Diagrams: 01/21/18 06:10 01/21/18 06:10 Objective Remarks: PE alert Abd - soft Rectal - clean wound, less cellulitis, dressing not changed Assessment and Plan - Plan Imp: No more fever OOB wound care, packing OK to DC home when family can clean wound RTO 1 - 2 weeks
[2018-01-21 22:43] VITALS: RESP 18
[2018-01-22 00:09] VITALS: BP 111/67; PULSE 55; TEMP 97.7
[2018-01-22] MEDS: metroNIDAZOLE 500 MG Tablet PO SCH (05:04)
--- NOTE | 2018-01-22 07:46 | P.DS ---
Date of admission: 01/19/18 11:24 Primary care physician: No Primary Care Physician Attending physician on discharge: Franky Mojica Anticipated date of discharge: 01/22/18 Brief History from admission: Mr Glynn is a 27-year-old male. 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 He is a previous small rectal abscess which resolved on its own. Recently he has been having rectal pain. He was waiting to see if this resolved on its own. It did not. Fevers have started. Fevers and tachycardia are present in addition to leukocytosis and evidence of perirectal abscess on CT scan. Based on this the patient has a perirectal abscess with sepsis. Surgical intervention is anticipated. Surgery has been consulted. Antibiotics have also been initiated. Pain treatments are in place but pain medications will be adjusted due to lack of pain control. DS: Diagnosis - Discharge Diagnosis (1) Sepsis Status: Acute (2) Perirectal abscess Status: Acute (3) Cellulitis Status: Acute DS: Medications - Discharge Medications Prescriptions: ciprofloxacin HCl [Cipro] 500 mg PO Q12H #20 tab metronidazole [Flagyl] 500 mg PO TID #30 tab oxycodone-acetaminophen 2 tab PO Q6H PRN #24 tab PRN Reason: Pain Scale 6 To 10 DS: Summary Hospital Course: 27-year-old male with relatively no past medical history who presented to the emergency department on 01/18 with complaints of rectal and fevers. She underwent CT scan of the pelvis which revealed left perirectal abscess. He was started on IV Flagyl and Cipro and rectal surgery consult was placed. Blood cultures drawn and were negative today. Patient underwent I&D of abscess by Dr. Wiley on 01/19. Wound dressings were performed by Dr. Wiley with ongoing recommendations. Pain control was established with oral pain medication and breakthrough pain medication. Patient had a fever on 01/20 of 102.5. His discharge was held for ongoing monitoring. He was seen and examined this morning and is ready to go home. Has been afebrile overnight and has not required any IV pain medication. Patient denies any nausea, vomiting, fevers, chills, cough or shortness of breath. Significant other will be taught dressing changes and patient will be provided with oral antibiotics. Patient understands that he will need to follow-up with Dr. Wiley as outpatient. - Time Spent with Patient Total time spent providing and/or coordinating discharge services: Less than 30 minutes Exam Vital signs: Vital Signs 01/21/18 08:00 01/21/18 12:00 01/21/18 16:00 Temperature 98.3 F 98.4 F 98.3 F Pulse Rate 70 65 61 Respiratory Rate 17 18 17 Blood Pressure 124/70 125/71 115/64 Pulse Oximetry 98 98 95 01/21/18 20:00 01/22/18 00:00 Temperature 98.1 F 97.7 F Pulse Rate 61 55 L Respiratory Rate 18 18 Blood Pressure 122/71 111/67 Pulse Oximetry 97 97 Intake & Output 01/21/18 01/22/18 01/22/18 18:59 06:59 18:59 Intake Total 950 / 950 900 / 900 Balance 950 / 950 900 / 900 Weight 77.9 kg Intake: IV 300 / 300 100 / 100 Cipro 400 MG/200 ML Inj 400 mg 200 / 200 In 200 ml @ 200 mls/hr IV.SIG Q12H [facility] Rx#:[id number] Flagyl 500 MG Inj 100 ML @ 100 100 / 100 100 / 100 mls/hr IV.SIG Q8H [facility] Rx#: [id number] Oral 650 / 650 800 / 800 Other: # Voids 10 4 Date of Last Bowel Movement 01/21/18 # Bowel Movements 1 Narrative: GENERAL: NAD, A&Ox3 HEAD: Normocephalic. NECK: Supple, trachea midline. EYES: No scleral icterus. No injection or drainage. CARDIOVASCULAR: Regular rate and rhythm without murmurs, gallops, or rubs. RESPIRATORY: Breath sounds equal bilaterally. No accessory muscle use. GASTROINTESTINAL: Abdomen soft, non-tender, nondistended. Left buttock/rectal dressing dry and intact. MUSCULOSKELETAL: No cyanosis, or edema. SKIN: Warm and dry. NEURO: No focal neurological deficits. Results Procedures completed during hospitalization: I&D rectal abscess 01/19 Labs on day of discharge: Labs from last 24 hours 01/21/18 01/21/18 06:10 06:10 WBC 5.8 RBC 4.18 L Hgb 12.9 L Hct 38.0 L MCV 90.8 MCH 30.9 MCHC 34.0 RDW 12.6 Plt Count 215 MPV 8.4 Neut % (Auto) 50.7 Lymph % (Auto) 31.5 [place] % (Auto) 13.3 H Eos % (Auto) 3.7 Baso % (Auto) 0.8 Neut # (Auto) 2.9 Lymph # (Auto) 1.8 [place] # (Auto) 0.8 Eos # (Auto) 0.2 Baso # (Auto) 0.0 WBC Differential . Differential Comment Auto diff final Sodium 140 Potassium 4.0 Chloride 106 Carbon Dioxide 28.1 Anion Gap 6 BUN 8 Creatinine 1.10 Estimated GFR 80 L Random Glucose 92 Calcium 8.3 L Preliminary micro results at discharge 01/18/18 23:50 Aerobic Blood Culture - Preliminary Blood - Peripheral No growth in 2 days Anaerobic Blood Culture - Preliminary No growth in 2 days 01/18/18 23:40 Aerobic Blood Culture - Preliminary Blood - Peripheral No growth in 3 days Anaerobic Blood Culture - Preliminary No growth in 3 days - Impressions ITS Impressions Pelvis CT 01/19/18 00:23 CONCLUSION: 1. 4.1 x 2.7 x 4.1 cm left perirectal abscess. Discharge Plan - Discharge Disposition Patient Disposition: Discharge Home - Discharge Condition Condition: Stable - Discharge Order Discharge Orders: Discharge Order (Routine); Ordered 01/22/18 Ordered By: Tanika Govea - Discharge Details Anticipated Discharge Date: 01/22/18 - Physicians Team Primary Care Provider: Primary Care Caryl Coppola Attending Provider: Franky Mojica Other Providers: Gerard Wiley MD
[2018-01-22] MEDS: Ciprofloxacin 500 MG Tablet PO SCH (09:25)
[2018-01-22] MEDS: Senna/Docusate Sodium 8.6/50 MG Tablet PO SCH (09:25)
== END 2018-01-22 09:41 | disposition home or self-care (01) ==
LOC: PHEDA 22:39 → PHED 22:39 → PHEDA 01-19 04:18 → PH3 01-19 04:22 → N07 01-19 16:58
PROVIDERS: ADMIT Hospitalist; ATTEND Hospitalist